=== PATIENT | male | born 1970 | race American Indian/Alaskan Native ===

== ENCOUNTER 2020-05-02 18:55 | Emergency (ER) | payer OTHER ==
[2020-05-02] MEDS ORDERED: KETOROLAC 30 MG/1 ML INJ IM ONE (19:55)
[2020-05-02] MEDS ORDERED: dexAMETHasone 20 MG/5 ML VIAL IM ONE (19:55)
--- NOTE | 2020-05-02 20:01 | Emergency Department Report ---
ED Extremity Problem HPI - General Chief complaint: Shoulder Injury Stated complaint: LT SHOUDLER PAINS Source: patient Mode of arrival: Ambulatory Limitations: No Limitations - History of Present Illness Initial comments: Patient is a 50 yo WM with no past medical history who presents to the ED with c/o acute onset persistent severe nontraumatic left shoulder pain for the last 1 week. 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 Patient states that the pain is worse with any active ROM. Patient denies dyspnea, nausea, vomiting, chest pain, dizziness, fever, chills, fall, traumatic injury, heavy lifting, neck pain, dizziness, cough, vision changes, numbness, tingling or weakness of left arm or cough and back pain or headache. MD Complaint: extremity pain (left shoulder pain), joint paint (left shoulder pain) -: Sudden, week(s) (1) Location: left, upper extremity (left shoulder) History of Same: No -: Yes arthralgia (left shoulder pain) Radiation: none Severity scale (0 -10): 7 Quality: burning, sharp, constant Consistency: constant Improves with: nothing Worsens with: weight bearing, palpation Associated Symptoms: denies other symptoms, arthralgias. denies: chest pain, shortness of breath, fever, myalgias, rash - Related Data Previous Rx's Medication Instructions Recorded Last Taken Type Naproxen 500 mg PO Q12H PRN #30 tablet 05/02/20 Unknown Rx methOCARBAMOL [Robaxin TAB] 750 mg PO BID PRN #20 tab 05/02/20 Unknown Rx predniSONE [Deltasone] 40 mg PO QDAY #12 tab 05/02/20 Unknown Rx traMADoL [Ultram] 50 mg PO Q6HR PRN #10 tablet 05/02/20 Unknown Rx Allergies Allergy/AdvReac Type Severity Reaction Status Date / Time No Known Allergies Allergy Unverified 05/02/20 19:51 ED Review of Systems ROS: Stated complaint: LT SHOUDLER PAINS Other details as noted in HPI Constitutional: denies: chills, fever Eyes: denies: eye pain, eye discharge, vision change ENT: denies: ear pain, throat pain Respiratory: denies: cough, shortness of breath, wheezing Cardiovascular: denies: chest pain, palpitations Endocrine: no symptoms reported Gastrointestinal: denies: abdominal pain, nausea, diarrhea Genitourinary: denies: urgency, dysuria Musculoskeletal: arthralgia (left shoulder pain), myalgia. denies: back pain, joint swelling Skin: denies: rash, lesions Neurological: denies: headache, weakness, paresthesias Psychiatric: denies: anxiety, depression Hematological/Lymphatic: denies: easy bleeding, easy bruising ED Past Medical Hx - Past Medical History Previous Medical History?: No - Surgical History Past Surgical History?: No - Social History Smoking Status: Current Every Day Smoker Substance Use Type: None - Medications Home Medications: Home Medications Medication Instructions Recorded Confirmed Last Taken Type Naproxen 500 mg PO Q12H PRN #30 tablet 05/02/20 Unknown Rx methOCARBAMOL [Robaxin TAB] 750 mg PO BID PRN #20 tab 05/02/20 Unknown Rx predniSONE [Deltasone] 40 mg PO QDAY #12 tab 05/02/20 Unknown Rx traMADoL [Ultram] 50 mg PO Q6HR PRN #10 tablet 05/02/20 Unknown Rx ED Physical Exam - General Limitations: No Limitations General appearance: alert, in no apparent distress - Head Head exam: Present: atraumatic, normocephalic, normal inspection - Eye Eye exam: Present: normal appearance, PERRL, EOMI Pupils: Present: normal accommodation - ENT ENT exam: Present: normal exam, normal orophraynx, mucous membranes moist, TM's normal bilaterally, normal external ear exam - Neck Neck exam: Present: normal inspection, full ROM - Respiratory Respiratory exam: Present: normal lung sounds bilaterally. Absent: respiratory distress, wheezes, rales, stridor, chest wall tenderness, accessory muscle use, decreased breath sounds, prolonged expiratory - Cardiovascular Cardiovascular Exam: Present: regular rate, normal rhythm, normal heart sounds. Absent: systolic murmur, diastolic murmur, rubs, gallop - GI/Abdominal GI/Abdominal exam: Present: soft, normal bowel sounds. Absent: tenderness, guarding, rebound, hyperactive bowel sounds, hypoactive bowel sounds, organomegaly, mass - Extremities Exam Extremities exam: Present: normal inspection, tenderness (Palpable left shoulder tenderness with limited ROM due to pain), normal capillary refill. Absent: full ROM (limited ROM of left shoulder due to pain), pedal edema, joint swelling, calf tenderness - Back Exam Back exam: Present: normal inspection, full ROM. Absent: tenderness, CVA tenderness (R), CVA tenderness (L), muscle spasm, paraspinal tenderness, vertebral tenderness - Neurological Exam Neurological exam: Present: alert, oriented X3, CN II-XII intact, normal gait, reflexes normal - Psychiatric Psychiatric exam: Present: normal affect, normal mood - Skin Skin exam: Present: warm, dry, intact, normal color. Absent: rash ED Course Vital Signs 05/02/20 19:45 Temperature 97.7 F Pulse Rate 102 H Respiratory 16 Rate Blood Pressure 136/101 O2 Sat by Pulse 94 Oximetry ED Medical Decision Making - Medical Decision Making This is a 50 yo WM with no past medical history who presents to the ED with c/o acute onset persistent severe nontraumatic left shoulder pain for the last 1 week. 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 Patient states that the pain is worse with any active ROM. In the ED, patient is alert and oriented x 3 and is in no acute distress but appears to be in pain. The physical exam shows palpable left shoulder tenderness with limited ROM due to pain. Patient was treated for pain and discharged home on pain medications. Patient was advised to follow up with his Primary care Physician in 7-10 days for reevaluation. Patient was also advised to return to the ED immediately if symptoms get worse. - Differential Diagnosis Shoulder Bursitis; Shoulder Tendonitis; Shoulder DJD; Muscle strain Critical care attestation.: If time is entered above; I have spent that time in minutes in the direct care of this critically ill patient, excluding procedure time. ED Disposition Clinical Impression: Acute bursitis of left shoulder, Left shoulder tendonitis Muscle strain of left shoulder region Qualifiers: Encounter type: initial encounter Qualified Code(s): S46.912A - Strain of unspecified muscle, fascia and tendon at shoulder and upper arm level, left arm, initial encounter Disposition: - TO HOME OR SELFCARE Is pt being admited?: No Does the pt Need Aspirin: No Condition: Stable Instructions: Muscle Strain, [id number], Bursitis, [id number], Tendinitis, [id number] Additional Instructions: Take medications with food, drink plenty of fluids and follow up with your Primary care physician in 7-10 days for reevaluation. Return to the ED immediately if symptoms get worse. Prescriptions: predniSONE [Deltasone] 40 mg PO QDAY #12 tab Naproxen 500 mg PO Q12H PRN #30 tablet PRN Reason: Pain , Severe (7-10) methOCARBAMOL [Robaxin TAB] 750 mg PO BID PRN #20 tab PRN Reason: Muscle Spasm traMADoL [Ultram] 50 mg PO Q6HR PRN #10 tablet PRN Reason: Pain Referrals: [facility] [Provider Group] - 7-10 days [facility] [Outside] - 7-10 days Forms: Work/School Release Form(ED) Time of Disposition: 20:08 Print Language: AZERI
[2020-05-02 20:26] VITALS: BP 144/84
== END 2020-05-02 20:25 | disposition home or self-care (01) ==
LOC: ED 18:55
DX: S46.912A Strain of unspecified muscle, fascia and tendon at shoulder and upper arm level, left arm, initial encounter (principal); M75.52 Bursitis of left shoulder; F17.200 Nicotine dependence, unspecified, uncomplicated; Z79.899 Other long term (current) drug therapy; X50.9XXA Other and unspecified overexertion or strenuous movements or postures, initial encounter; Y93.89 Activity, other specified; Y92.89 Other specified places as the place of occurrence of the external cause; Y99.8 Other external cause status
CPT/HCPCS: 96372; 99283; J1100; J1885